=== PATIENT | female | born 1995 | race Caucasian/White ===

== ENCOUNTER 2016-06-20 13:45 | Emergency (ER) | payer OTHER ==
[~2016-06-20] VITALS: Ht 160 cm; Wt 63.0 kg
[2016-06-20 13:52] VITALS: TEMP 36.7; Ht 160 cm; Wt 63.0 kg
[2016-06-20] MEDS ORDERED: PRENTAB26 PO (14:05)
[2016-06-20] MEDS ORDERED: MoRPHine SULFATE 2 MG/ML CARP IV STA (14:20)
[2016-06-20] MEDS ORDERED: ONDANSETRON INJ 2 MG/ML 2 ML VIAL IV STA ×2 (14:20→16:55)
[2016-06-20] MEDS ORDERED: SODIUM CHLORIDE 0.9% 1000ML 1,000 ML IV STA (14:20)
[2016-06-20 14:40] LABS: BASO % 0.3 %; BASO ABS # 0.03 K/uL (0-0.2); COMPLETE YES; HEMATOCRIT 38.2 % (37-47); IG% 0.3 %; LYMPH % 21.3 %; LYMPH ABS # 2.18 K/uL (1.2-3.4); MEAN CELL VOLUME 85.5 fL (80-100); MEAN CORPUSCULAR HEMOGLOBIN 29.3 pg (25-34); MEAN CORPUSCULAR HGB CONC 34.3 g/dl (32-36); MEAN PLATELET VOLUME 10.4 fL (7.4-10.4); MONO % 7.5 %; NEUT % 69.6 %; PLATELET COUNT 284 K/uL (130-400); RED BLOOD COUNT 4.47 M/uL (4.2-5.4); WHITE BLOOD COUNT 10.24 K/uL (4.8-10.8)
[2016-06-20 14:42] LABS: URINE APPEARANCE CLEAR (CLEAR); URINE BILIRUBIN NEG (NEG); URINE COLOR YELLOW; URINE EPITHELIAL CELL AUTO >30 /lpf (0-5); URINE NITRITE NEG (NEG); URINE PH 6.5 (4.5-7.5); URINE SPECIFIC GRAVITY 1.006 (1.000-1.030); UROBILINOGEN NEG (NEG)
[2016-06-20 14:43] LABS: MANUAL MICROSCOPIC REQUIRED? NO; REVIEW REQ? NO
[2016-06-20 15:10] LABS: ALKALINE PHOSPHATASE 50 U/L (45-117); ALT/SGPT 23 U/L (12-78); AMYLASE 67 U/L (25-115); AST/SGOT 21 U/L (15-37); BLOOD UREA NITROGEN 5 mg/dl (7-18); BUN/CREATININE RATIO 7.6 (10-20); CALCIUM 9.3 mg/dl (8.5-10.1); CARBON DIOXIDE 25 mmol/L (21-32); CHLORIDE 106 mmol/L (98-107); GLUCOSE 72 mg/dl (70-99); POTASSIUM 3.6 mmol/L (3.5-5.1); SODIUM 139 mmol/L (136-145)
--- NOTE | 2016-06-20 17:56 | DIAGNOSTIC IMAGING REPORT ---
Right upper quadrant ultrasound GALLBLADDER-ABD LIMITED CLINICAL HISTORY: flank pain radiating around the abdomen to the supraumbilical ar pain TECHNIQUE: Ultrasound COMPARISON STUDY: None FINDINGS: Normal gallbladder. Common bile duct 5 mm. Liver and pancreas are uniform. Right kidney is negative for hydronephrosis. IMPRESSION: Negative study Electronically signed by: Blaise Bell M.D. 06/20/2016 5:55 PM Dictated Date/Time: 06/20/2016 5:54 PM
[2016-06-20] MEDS ORDERED: ONDA4TAB46 PO (18:13)
[2016-06-20 18:20] VITALS: BP 131/80; PULSE 80; O2SAT 98
--- NOTE | 2016-06-20 22:15 | EMERGENCY ROOM VISIT NOTE ---
ED Visit Note First contact with patient: 14:08 Chief Complaint: Left flank pain and superior umbilicus pain. History of Present Illness: Ms. Campbell is a 20 year-old white female who ambulates into the ED complaining of pain in the left flank area. Historically patient reports she is 2 and para 0 and is currently 11 weeks with an EDC of January 08. Patient reports intermittent left flank pain for the last 3-4 days. She describes her pain as a mild cramping and pressure sensation. Her pain was mild over the last few days. She did not identify any aggravating or alleviating factors related to the pain. She did not take any medications for pain. She denies any associated symptoms with her pain. Then approximately 3.5 hours ago her pain started and was severe. She uses the same descriptors for her pain. She rates her discomfort 6/10 at the onset and is currently 2/10. Now she reports the pain is radiating around the left side of the abdomen into the area just superior to the umbilicus. Since the onset of her severe pain it has waxed and waned in intensity. She has not identified any aggravating or alleviating factors related to the pain. She did not take any medications for pain prior to arrival at the hospital. Associated with her pain she reports she has been nauseated but has not vomited and she has had chills but no sriram fever. Patient denies sweats, skin eruptions, skin color changes, upper respiratory tract symptoms, shortness of breath, chest pain, diarrhea, constipation, rectal bleeding, black/tarry stools, urinary symptoms, hematuria, vaginal bleeding, vaginal discharge. Review of Systems: As noted above in history of present illness. All body systems were reviewed and found to be negative as noted above. Past Medical History: Hypertension, migraine headaches. Current Medications: Patient denies. Allergies to Medications: Patient denies. Social History: Patient is currently employed; she lives with her fiance and feels safe in her home environment; she denies tobacco and alcohol use. Physical Examination: Vital Signs: Date Time Temp Pulse Resp B/P Pulse Ox O2 Delivery O2 Flow Rate FiO2 06/20/16 18:20 80 16 131/80 98 06/20/16 17:58 70 16 137/77 96 Room Air 06/20/16 17:09 77 16 124/84 97 Room Air 06/20/16 15:22 72 19 139/75 100 Room Air 06/20/16 14:30 65 06/20/16 13:52 36.7 87 16 163/96 98 Room Air GENERAL: 20-year-old female in mild distress due to pain, nontoxic-appearing, afebrile and hemodynamically stable. NEUROLOGICAL: Awake, alert and oriented to person, place and time. Answering questions appropriately and following commands. Normal gait. Good hand eye coordination. SKIN: Warm, dry and pink. No soft tissue eruptions or trauma noted. HEENT: Atraumatic and normocephalic. PERRL. Sclera white and conjunctiva pink. Oral cavity moist and pink. Pharynx is nonerythematous or edematous. Speech normal. No lymphadenopathy. Trachea midline. No jugular venous distention. BACK: No tenderness over the bony spine. No CVA tenderness. THORAX: Lungs sounds are clear to auscultation and equal bilaterally with symmetrical chest wall. No wheezing, rales or rhonchi. No crepitus, tenderness , subcutaneous air or deformities noted. HEART: Regular rate and rhythm. No gallops, rubs or murmurs are appreciated. ABDOMEN: Flat and soft with mild tenderness in the epigastric and right upper quadrant; no tenderness in the left upper quadrant. Positive bowel sounds in all quadrants. No guarding, rigidity or organomegaly. EXTREMITIES: Moves all extremities well on command and with purpose. All distal neurovascular statuses are intact and equal bilaterally. ED Course: Patient is assessed as noted above. Laboratory Testing: Test 06/20/16 14:05 06/20/16 14:15 06/20/16 15:32 Range/Units Urine Color YELLOW Urine Appearance CLEAR CLEAR Urine pH 6.5 4.5-7.5 Urine Specific [place] 1.006 1.000-1.030 Urine Protein NEG NEG Urine Glucose (UA) NEG NEG Urine Ketones NEG NEG Urine Occult Blood NEG NEG Urine Nitrite NEG NEG Urine Bilirubin NEG NEG Urine Urobilinogen NEG NEG Urine Leukocyte Esterase SMALL NEG Urine WBC (Auto) 5-10 0-5 /hpf Urine RBC (Auto) 0-4 0-4 /hpf Urine Hyaline Casts (Auto) 1-5 0-5 /lpf Urine Epithelial Cells (Auto) >30 0-5 /lpf Urine Bacteria (Auto) NEG NEG White Blood Count 10.24 4.8-10.8 K/uL Red Blood Count 4.47 4.2-5.4 M/uL Hemoglobin 13.1 12.0-16.0 g/dL Hematocrit 38.2 37-47 % Mean Corpuscular Volume 85.5 80-100 fL Mean Corpuscular Hemoglobin 29.3 25-34 pg Mean Corpuscular Hemoglobin Concent 34.3 32-36 g/dl Platelet Count 284 130-400 K/uL Mean Platelet Volume 10.4 7.4-10.4 fL Neutrophils (%) (Auto) 69.6 % Lymphocytes (%) (Auto) 21.3 % Monocytes (%) (Auto) 7.5 % Eosinophils (%) (Auto) 1.0 % Basophils (%) (Auto) 0.3 % Neutrophils # (Auto) 7.13 1.4-6.5 K/uL Lymphocytes # (Auto) 2.18 1.2-3.4 K/uL Monocytes # (Auto) 0.77 0.11-0.59 K/uL Eosinophils # (Auto) 0.10 0-0.5 K/uL Basophils # (Auto) 0.03 0-0.2 K/uL RDW Standard Deviation 40.5 36.4-46.3 fL RDW Coefficient of Variation 13.0 11.5-14.5 % Immature Granulocyte % (Auto) 0.3 % Immature Granulocyte # (Auto) 0.03 0.00-0.02 K/uL Sodium Level 139 136-145 mmol/L Potassium Level 3.6 3.5-5.1 mmol/L Chloride Level 106 98-107 mmol/L Carbon Dioxide Level 25 21-32 mmol/L Anion Gap 8.0 3-11 mmol/L Blood Urea Nitrogen 5 7-18 mg/dl Creatinine 0.60 0.60-1.20 mg/dl Est Creatinine Clear Calc Drug Dose 134.8 ml/min Estimated GFR () > 150.0 Estimated GFR (Non- 132.1 BUN/Creatinine Ratio 7.6 10-20 Random Glucose 72 70-99 mg/dl Calcium Level 9.3 8.5-10.1 mg/dl Total Bilirubin 0.4 0.2-1 mg/dl Direct Bilirubin 0.1 0-0.2 mg/dl Aspartate Amino Transf (AST/SGOT) 21 15-37 U/L Alanine Aminotransferase (ALT/SGPT) 23 12-78 U/L Alkaline Phosphatase 50 45-117 U/L Total Protein 7.7 6.4-8.2 gm/dl Albumin 4.1 3.4-5.0 gm/dl Amylase Level 67 25-115 U/L Lipase 180 73-393 U/L Human Chorionic Gonadotropin, Quant 80825 mIU/mL Chemistry Specimen Hemolysis Gallbladder Ultrasound: Was reviewed by myself and read by the radiologist showing a normal-appearing gallbladder, liver, pancreas and kidney. Common bile duct measuring 5 mm. Patient was hydrated with normal saline and she received a total of 8 mg of Zofran IV; she was offered pain medications and refused. Patient was reassessed multiple times during her stay in the emergency department. Patient's case was reviewed with Dr. Quinones; we agreed on diagnostic approach, treatment, disposition and plan. Patient was educated about tonight's findings and instructed on her treatment plan; she verbalizes understanding and agreement with this plan. Clinical Impression: Acute left-sided thoracic back pain. Superior umbilical abdominal pain. Nausea. Decision-Making: Initially my differential diagnosis I considered during calculus, pyelonephritis, pancreatitis, hepatitis, splenomegaly, constipation, esophagitis, gastritis and other causes. Disposition: Patient discharged home in stable condition accompanied by her boyfriend; prior to departure she was was reassessed and subjectively reported she was feeling better. Plan: Patient was encouraged to use 650 mg of acetaminophen every 6 hours as needed for pain. Patient was prescribed Zofran 4 mg every 6 hours as needed for nausea. Patient was encouraged to contact her OSTOMY NURSE practitioner tomorrow inform them of today's ED visit so they may review labs and decide if she would need an earlier appointment. Patient was encouraged return the ED for worsening/uncontrolled pain, worsening/ uncontrolled nausea or vomiting, fevers, urinary symptoms, vaginal bleeding or any new/concerning symptoms.
== END 2016-06-20 18:22 | disposition home or self-care (01) ==
LOC: C.EDB 13:47 → C.EDA 18:22
DX: O26.891 Other specified pregnancy related conditions, first trimester (principal); R10.33 Periumbilical pain; M54.6 Pain in thoracic spine; R11.0 Nausea; O10.011 Pre-existing essential hypertension complicating pregnancy, first trimester; O99.351 Diseases of the nervous system complicating pregnancy, first trimester; G43.909 Migraine, unspecified, not intractable, without status migrainosus; Z3A.11 11 weeks gestation of pregnancy

== ENCOUNTER → 2016-07-02 | Outpatient (CLI) | payer OTHER ==
[~2016-07-02] MED LIST: ONDA4TAB46 PO; PRENTAB26 PO
[2016-07-04 15:16] LABS: CHLAMYDIA TRACH RNA*** NOT DETECTED (NOT DETECTED); GC (NEIS GONORRHOEAE)RNA** NOT DETECTED (NOT DETECTED)
== END | disposition home or self-care (01) ==
LOC: C.LABSPEC 13:19
PROVIDERS: ATTEND Obstetrics & Gynecology
DX: Z34.01 Encounter for supervision of normal first pregnancy, first trimester (principal)

== ENCOUNTER → 2016-07-02 | Outpatient (CLI) | payer OTHER ==
[2016-07-02 12:30] LABS: BASO % 0.2 %; BASO ABS # 0.02 K/uL (0-0.2); COMPLETE YES; EOS % 1.2 %; HEMATOCRIT 41.7 % (37-47); IG% 0.3 %; LYMPH % 22.2 %; LYMPH ABS # 2.36 K/uL (1.2-3.4); MEAN CELL VOLUME 87.1 fL (80-100); MEAN CORPUSCULAR HEMOGLOBIN 29.2 pg (25-34); MEAN CORPUSCULAR HGB CONC 33.6 g/dl (32-36); MEAN PLATELET VOLUME 10.5 fL (7.4-10.4); MONO % 5.8 %; NEUT % 70.3 %; PLATELET COUNT 288 K/uL (130-400); RED BLOOD COUNT 4.79 M/uL (4.2-5.4); WHITE BLOOD COUNT 10.61 K/uL (4.8-10.8)
== END | disposition home or self-care (01) ==
LOC: C.LAB1850 10:58
PROVIDERS: ATTEND Obstetrics & Gynecology
DX: Z34.01 Encounter for supervision of normal first pregnancy, first trimester (principal)

== ENCOUNTER → 2016-08-09 | Outpatient (CLI) | payer OTHER ==
[2016-08-09 18:14] LABS: GTGD 50 Grams
[2016-08-13 16:05] LABS: AFP CONCENTRATION 56.9 NG/ML; AFP MULTIPLE OF MEDIAN 0.93; AFPTS GESTATIONAL AGE 20.1 WEEKS; AFPTS INSULIN DEP DIABETIC? NO; AFPTS MATERNAL WT 136 LBS; ALPHA-FETOPROTEIN RACE CAUCASIAN=W; EDD DETERMINED BY ULTRASOUND; ESTRIOL MULTIPLE OF MEDIAN 0.76; HISTORY OF NTD NO; INHIBIN A 161 PG/ML; INHIBIN A MOM 0.81; REPEAT SAMPLE? NO; hCG MULTIPLE OF MEDIAN 1.26
== END | disposition home or self-care (01) ==
LOC: C.LAB1850 12:52
PROVIDERS: ATTEND Obstetrics & Gynecology
DX: Z34.02 Encounter for supervision of normal first pregnancy, second trimester (principal)

== ENCOUNTER → 2016-10-01 | Outpatient (CLI) | payer OTHER ==
[2016-10-01 14:13] LABS: URINE APPEARANCE CLOUDY (CLEAR); URINE BILIRUBIN NEG (NEG); URINE COLOR YELLOW; URINE EPITHELIAL CELL AUTO >30 /lpf (0-5); URINE NITRITE NEG (NEG); URINE SPECIFIC GRAVITY 1.013 (1.000-1.030); UROBILINOGEN NEG (NEG)
[2016-10-01 14:18] LABS: MANUAL MICROSCOPIC REQUIRED? NO; REVIEW REQ? NO
== END | disposition home or self-care (01) ==
LOC: C.LABSPEC 12:50
PROVIDERS: ATTEND Obstetrics & Gynecology
DX: Z34.02 Encounter for supervision of normal first pregnancy, second trimester (principal)

== ENCOUNTER → 2016-10-04 | Outpatient (CLI) | payer OTHER ==
[2016-10-04 16:56] LABS: HEMATOCRIT 34.7 % (37-47)
[2016-10-04 20:04] LABS: GTGD 50 Grams
== END | disposition home or self-care (01) ==
LOC: C.LAB1850 14:14
PROVIDERS: ATTEND Obstetrics & Gynecology
DX: Z34.02 Encounter for supervision of normal first pregnancy, second trimester (principal)

== ENCOUNTER 2016-10-16 10:03 | Outpatient (CLI) | payer OTHER ==
[~2016-10-16] VITALS: Ht 160 cm; Wt 69.1 kg
[2016-10-16 11:09] VITALS: Ht 160 cm; Wt 69.1 kg
--- NOTE | 2016-10-16 13:52 | DIAGNOSTIC IMAGING REPORT ---
BIOPHYSICAL PROFILE CLINICAL HISTORY: arrhythmia. COMPARISON STUDY: ultrasound July 02, 2016. TECHNIQUE: Transabdominal biophysical profile was performed. FINDINGS: Single intrauterine gestation is noted with normal heart rate of 127 bpm. Position was transverse. Amniotic fluid index measured 16 cm. tone and movement were normal. No breathing was identified. Trace pericardial effusion is noted. Placenta is located along the right lateral aspect of the uterus. No placental abnormality is identified. IMPRESSION: 1. Single intrauterine gestation with normal heart rate of 127 bpm. 2. Biophysical profile of 6 out of 8. Normal tone, movement and amniotic fluid index with no breathing identified. 3. Trace pericardial effusion. Electronically signed by: Philip Guzman M.D. 10/16/2016 1:50 PM Dictated Date/Time: 10/16/2016 1:45 PM
== END 2016-10-16 16:49 | disposition home or self-care (01) ==
LOC: C.OPB 10:03 → C.LD 10:04 → C.OPB 16:49
PROVIDERS: ATTEND Obstetrics & Gynecology
DX: O26.899 Other specified pregnancy related conditions, unspecified trimester (principal); Z3A.00 Weeks of gestation of pregnancy not specified

== ENCOUNTER 2016-10-18 13:10 | Outpatient (CLI) | payer OTHER ==
[~2016-10-18 13:10] MED LIST changes: -ONDA4TAB46 PO
== END 2016-10-18 14:30 | disposition home or self-care (01) ==
LOC: C.OPB 13:10 → C.LD 13:10 → C.OPB 14:30
PROVIDERS: ATTEND Obstetrics & Gynecology
DX: O36.8930 Maternal care for other specified fetal problems, third trimester, not applicable or unspecified (principal); Z3A.00 Weeks of gestation of pregnancy not specified

== ENCOUNTER → 2016-10-25 | Outpatient (CLI) | payer OTHER | END | disposition home or self-care (01) | LOC: C.LAB1850 09:37 | PROVIDERS: ATTEND Obstetrics & Gynecology | DX: O28.1 Abnormal biochemical finding on antenatal screening of mother (principal) ==

== ENCOUNTER 2016-11-02 22:34 | Outpatient (CLI) | payer OTHER ==
[~2016-11-02] VITALS: Ht 160 cm; Wt 70.5 kg
[2016-11-02] MEDS ORDERED: ACETAMINOPHEN 500 MG TAB PO ONE (22:37)
[2016-11-02] MEDS ORDERED: LACTATED RINGER'S 1000ML 500 ML IV ONE (22:37)
[2016-11-02] MEDS ORDERED: ACETAMINOPHEN 500 MG TAB PO STA (22:44)
[2016-11-02] MEDS ORDERED: BETAMETH SOD PHOS/ACETATE IA 6 MG/ML IM STA (23:09)
[2016-11-02] MEDS: LACTATED RINGER'S 1000ML 1,000 ML IV SCH (23:32)
[2016-11-02 23:36] LABS: BASO % 0.1 %; BASO ABS # 0.02 K/uL (0-0.2); COMPLETE YES; EOS % 1.2 %; HEMATOCRIT 33.2 % (37-47); IG% 1.3 %; LYMPH % 19.1 %; MEAN CELL VOLUME 89.7 fL (80-100); MEAN CORPUSCULAR HEMOGLOBIN 29.7 pg (25-34); MEAN CORPUSCULAR HGB CONC 33.1 g/dl (32-36); MEAN PLATELET VOLUME 10.5 fL (7.4-10.4); MONO % 6.7 %; NEUT % 71.6 %; PLATELET COUNT 233 K/uL (130-400); WHITE BLOOD COUNT 14.64 K/uL (4.8-10.8)
[2016-11-03 00:27] VITALS: Ht 160 cm; Wt 70.5 kg
[2016-11-03] MEDS: LACTATED RINGER'S 1000ML 1,000 ML IV SCH (01:10)
--- NOTE | 2016-11-03 07:11 | Discharge Instructions ---
Discharge Instructions Date of Service Nov 03, 2016. Admission Reason for Admission: Check Movement Discharge Discharge Diagnosis / Problem: s/p abdominal trauma Discharge Goals Goal(s): Continuing OB care Activity Recommendations Activity Limitations: per Instructions/Follow-up section . Instructions / Follow-Up Instructions / Follow-Up ACTIVITY RECOMMENDATIONS: See Labor Sheet. SPECIAL CARE INSTRUCTIONS: Call Doctor if: * Regular contractions every 5 minutes or greater than 10 contractions in one hour. * Bleeding * Water breaks or is leaking * Decreased movement * Fever >100.4 degrees F * Pain not relieved by routine measures or pain medication ordered. FOLLOW UP VISIT: COME TO [facility] AND DELIVERY [facility], 11/03/16 TO RECEIVE YOUR SECOND DOSE OF STEROIDS. As scheduled on this week. Current Hospital Diet Patient's current hospital diet: Discharge Diet Recommended Diet: Regular OB Diet Pending Studies Studies pending at discharge: no Medical Emergencies . Who to Call and When: Medical Emergencies: If at any time you feel your situation is an emergency, please call 911 immediately. . Non-Emergent Contact Non-Emergency issues call your: Primary Care Provider, Senior Site Manager . . "Provider Documentation" section prepared by Alysha Bunch. . VTE Core Measure Inpt VTE Proph given/why not?: Treatment not indicated
== END 2016-11-03 07:36 | disposition home or self-care (01) ==
LOC: C.OPB 22:34 → C.LD 22:35 → C.OPB 11-03 07:36
PROVIDERS: ATTEND Obstetrics & Gynecology
DX: O26.893 Other specified pregnancy related conditions, third trimester (principal); S30.1XXA Contusion of abdominal wall, initial encounter; W01.0XXA Fall on same level from slipping, tripping and stumbling without subsequent striking against object, initial encounter; Y93.K1 Activity, walking an animal; Z3A.32 32 weeks gestation of pregnancy

== ENCOUNTER 2016-11-03 23:52 | Outpatient (CLI) | payer OTHER ==
[~2016-11-03] VITALS: Ht 160 cm; Wt 70.5 kg
[2016-11-04 00:18] VITALS: Ht 160 cm; Wt 70.5 kg
[2016-11-04] MEDS ORDERED: BETAMETH SOD PHOS/ACETATE IA 6 MG/ML ONE (00:23)
[2016-11-04] MEDS ORDERED: BETAMETH SOD PHOS/ACETATE IA 6 MG/ML IM STA (00:27)
--- NOTE | 2016-11-07 06:59 | EDITING REQUIRED CODING QUERY ---
DIAGNOSIS NEEDED To promote full compliance with coding requirements relating to patient care, physician participation is requested in all cases of mat roller uncertainty. Please assist us with the question(s) below: Coding Question: The patient received care in labor and delivery on 11/04/16 as noted within the record. Please document the diagnosis that is being addressed by the medication/treatment. Provider Response: DIAGNosis at 32 weeks, contractions WEEKS OF GESTATION: 32 Thank you for your assistance, Mary Buckner - Portuguese Tutor
== END 2016-11-04 00:42 | disposition home or self-care (01) ==
LOC: C.OPB 23:52 → C.LD 23:54 → C.OPB 11-04 00:42
PROVIDERS: ATTEND Obstetrics & Gynecology
DX: O62.9 Abnormality of forces of labor, unspecified (principal); Z3A.32 32 weeks gestation of pregnancy

== ENCOUNTER → 2016-12-06 | Outpatient (CLI) | payer OTHER | END | disposition home or self-care (01) | LOC: C.LABSPEC 15:30 | PROVIDERS: ATTEND Obstetrics & Gynecology | DX: Z34.03 Encounter for supervision of normal first pregnancy, third trimester (principal) ==

== ENCOUNTER 2018-10-29 14:09 | Inpatient (IN) ==
[2018-10-29] MEDS ORDERED: ACETAMINOPHEN 500 MG TAB PO STA (15:01)
[2018-10-29 15:06] LABS: Basophils # (auto) 0.02 K/uL (0-0.2); Basophils % (auto) 0.2 %; Eosinophils # (auto) 0.08 K/uL (0-0.5); Eosinophils % (auto) 0.7 %; Hematocrit (blood only) 33.4 % (37-47); Immature Granulocytes # (auto) 0.04 K/uL (0.00-0.02); Immature Granulocytes % (auto) 0.4 %; Lymphocytes # (auto) 1.87 K/uL (1.2-3.4); Lymphocytes % (auto) 16.9 %; Mean Corpuscular Hemoglobin 27.6 pg (25-34); Mean Corpuscular Volume 83.7 fL (80-100); Mean Platelet Volume 11.9 fL (7.4-10.4); Monocytes # (auto) 0.74 K/uL (0.11-0.59); Monocytes % (auto) 6.7 %; Neutrophils # (auto) 8.33 K/uL (1.4-6.5); Neutrophils % (auto) 75.1 %; Platelet Count 224 K/uL (130-400); RDW Coefficient of Variation 13.1 % (11.5-14.5); RDW Standard Deviation 39.6 fL (36.4-46.3); Red Blood Count 3.99 M/uL (4.2-5.4); White Blood Count 11.08 K/uL (4.8-10.8)
[2018-10-29 15:08] LABS: Mean Corpuscular Hgb Conc 32.9 g/dL (32-36)
[2018-10-29 15:26] LABS: Alanine Aminotransferase 17 U/L (12-78); Albumin Level 2.4 gm/dl (3.4-5.0); Aspartate Aminotransferase 20 U/L (15-37); BUN Creatinine Ratio 13.9 (10-20); Blood Urea Nitrogen 8 mg/dl (7-18); Calcium 8.9 mg/dl (8.5-10.1); Carbon Dioxide 21 mmol/L (21-32); Chloride 108 mmol/L (98-107); Creatinine Clr Calc Pharmacy 156.3 ml/min; Est GFR (African American) > 150.0; Est GFR (Non-African American) 133.3; Glucose 70 mg/dl (70-99); Potassium 3.8 mmol/L (3.5-5.1); Sodium 137 mmol/L (136-145)
[2018-10-29 15:29] LABS: Albumin Globulin Ratio 0.6 (0.9-2); Alkaline Phosphatase 158 U/L (45-117); Bilirubin,Total 0.2 mg/dl (0.2-1); Total Protein 6.4 gm/dl (6.4-8.2)
[2018-10-29 15:44] LABS: Creatinine Urine Random 30.3 mg/dl; Protein Creatinine Ratio Urine 0.3 (0-0.2); Total Protein Urine Random 7.7 mg/dl (0-11.9)
[2018-10-29] MEDS ORDERED: OXYTOCIN 30 UNITS/500 ML BAG IV PRN ×2 (15:56→17:57)
[2018-10-29] MEDS ORDERED: DINOPROSTONE 10 MG INSERT PV ONE (15:56)
[2018-10-29] MEDS: LABETALOL HCL 200 MG TAB PO SCH ×3 (16:23→21:38)
--- NOTE | 2018-10-29 18:00 | Labor Progress Brief Note ---
Date of Service October 29, 2018 Pt seen and evaluated Ruled in for preeclampsia- Mild offered pt induction of labor, she has agreed FHR; CAT1 Ctx 2-4mins VE /50/-1 will start pitocin Results & Data Vital Signs (Past 12 Hours) Vital Signs Temp Pulse Resp BP 10/29/18 15:47 68 152/96 H 10/29/18 15:32 75 160/81 H 10/29/18 15:17 83 145/89 H 10/29/18 15:02 87 134/93 10/29/18 14:45 79 130/83 10/29/18 14:29 78 147/94 H 10/29/18 14:20 36.6 C 78 18 147/94 H 10/29/18 14:15 75 129/69
--- NOTE | 2018-10-29 18:13 | History and Physical Report ---
DATE OF ADMISSION: 10/29/2018 NOTICE TO RECEIVING CONSTITUTION PARTY/AGENCY This information is strictly Confidential and protected under [place] law. [place] law prohibits you from making any further disclosure of this information unless further disclosure is expressly permitted by the written consent of the person to whom it pertains or is authorized by law. A general authorization for the release of medical or other information is not sufficient for this purpose. Hospital accepts no responsibility if the information is made available to any other person, INCLUDING THE PATIENT. HISTORY OF PRESENT ILLNESS: The patient is a 22-year-old G2, P1, due date 11/01/2018 making her 39 weeks and 4 days today. She has had an unremarkable course until this morning when she experienced some headache. She was seen in the office for routine care during which blood pressures done in the office were elevated in the 170-200. She had 1+ proteinuria. She was sent to labor and delivery. On arrival at labor and delivery, she had no shortness of breath, no chills, no fever. Remarkably, her initial blood pressures in labor and delivery were not elevated. Serial blood pressures; however, have documented two elevated blood pressures. CBC, complete chemistry are ordered all within normal. Platelets are normal. LFTs are normal. Urine protein creatinine clearance at 0.3. Diagnosis at this time therefore is mild preeclampsia. The patient besides mild headache declines any shortness of breath, any right upper quadrant pain or visual changes. COURSE: As stated above, has been unremarkable until this morning. LABS: Blood type A positive, antibody negative, rubella immune, GBS negative. PAST MEDICAL HISTORY: 1. Depression. 2. Anxiety. 3. Migraines. PAST SURGICAL HISTORY: The patient has had dental surgery in the past. SOCIAL HISTORY: The patient denies tobacco, drug, alcohol use. FAMILY HISTORY: Noncontributory. PHYSICAL EXAMINATION: GENERAL: Well-developed, well-nourished white female in no acute distress. HEART: S1, S2, regular rhythm and rate. ABDOMEN: Gravid. Bedside sonogram shows cephalic presentation. PELVIC: The patient is 3 cm, 50% effaced, and -1. EXTREMITIES: No cyanosis, clubbing or edema. ASSESSMENT AND PLAN: A 22-year-old G2, P1 at 39+ weeks, mild preeclampsia. The patient is admitted. I have discussed induction of labor with patient. She has agreed. We will therefore proceed with induction for mild preeclampsia. VALENCIA
[2018-10-29] MEDS: LACTATED RINGER'S 1,000 ML IV PRN (18:23)
[2018-10-29] MEDS ORDERED: OXYCODONE/ACETAMINOPHEN 5mg/325mg TAB PO STA ×2 (21:50→22:03)
[2018-10-30] MEDS: LACTATED RINGER'S 1,000 ML IV PRN ×2 (01:57→06:13)
--- NOTE | 2018-10-30 02:15 | Labor Progress Brief Note ---
Date of Service October 30, 2018 Induction for preeclampsia On Labetelol Improved headache FHR: CAT1 Ctx 2-5mins Pit; 16MU VE; 4/80/0 station Discussed AROM- Her boyfriend is home till 6AM when he would have a molder closed molds Results & Data Vital Signs (Past 12 Hours) Vital Signs Temp Pulse Resp BP 10/29/18 15:47 68 152/96 H 10/29/18 15:32 75 160/81 H 10/29/18 15:17 83 145/89 H 10/29/18 15:02 87 134/93 10/29/18 14:45 79 130/83 10/29/18 14:29 78 147/94 H 10/29/18 14:20 36.6 C 78 18 147/94 H 10/29/18 14:15 75 129/69
[2018-10-30] MEDS ORDERED: ePHEDrine sulfate 50 MG/ML AMP ONE (03:38)
[2018-10-30] MEDS ORDERED: BUPIVACAINE 0.25% 30 ML VIAL ONE (03:38)
[2018-10-30] MEDS ORDERED: fentaNYL citrate 100 MCG/2 ML VIAL ONE (03:39)
[2018-10-30] MEDS ORDERED: fentaNYL 2MCG/ML ROPIV 1.25MG/ML 100 ML BAG EPI ONE (03:39)
[2018-10-30] MEDS: LABETALOL HCL 200 MG TAB PO SCH ×2 (04:07→16:47)
[2018-10-30] MEDS ORDERED: fentaNYL 2MCG/ML ROPIV 1.25MG/ML 100 ML BAG EPI PRN (04:09)
[2018-10-30] MEDS ORDERED: ePHEDrine sulfate 50 MG/ML AMP IV PRN (04:09)
[2018-10-30] MEDS ORDERED: ONDANSETRON INJ 2 MG/ML 2 ML VIAL IV PRN (04:09)
[2018-10-30] MEDS ORDERED: NALOXONE HCL 1 MG in SODIUM CHLORIDE 0.9% 1000ML 1,000 ML IV PRN (04:09)
[2018-10-30] MEDS ORDERED: DiphenhydrAMINE HCL 50 MG/ML VIAL IV PRN (04:09)
[2018-10-30] MEDS ORDERED: NALOXONE HCL 0.4 MG/1 ML VIAL/CARP IV PRN (04:09)
[2018-10-30] MEDS ORDERED: NALBUPHINE HCL INJ 10 MG/ML AMP IV PRN (04:09)
--- NOTE | 2018-10-30 04:11 | Anesthesiology Consultation ---
Date of Service October 30, 2018 Assessment & Plan Chart Review Chart Review: Patient NOT seen in Pre Admission Testing and Acceptable Risk for Labor Epidural Consults Requested none ASA ASA2 Proposed Anesthesia Anesthesia Type: Labor Epidural and CSE Risk / Benefits Reviewed With: PT / POA / Parent / Guardian, Accepts Plan and Informed Consent Obtained History Height/Weight Height: 5 ft 3 in Weight: 77.111 kg Allergies Allergy/AdvReac Type Severity Reaction Status Date / Time No Known Allergies Allergy Unverified 10/17/18 17:18 Medications Home Medications Medication Instructions Recorded Confirmed Last Taken PNV cmb#95-ferrous fumarate-FA 1 tab PO DAILY 06/27/18 10/29/18 1 Day Ago [] ~10/28/18 Active Medications Generic Name Dose Route Start Last Admin Trade Name Freq PRN Reason Stop Dose Admin Lactated Ringer's 1,000 mls @ 125 mls/hr 10/29/18 15:56 10/30/18 04:04 Lr IV 10/31/18 15:55 125 mls/hr .Q8H PRN Infusion L&D Protocol Protocol Oxytocin 30 units in 500 mls @ 9 mls/hr 10/29/18 17:57 10/30/18 04:13 Pitocin IV 10/31/18 17:56 0 units/hr .Q24H PRN 0 mls/hr Labor Induction/Augmentation Titration Protocol 0.54 UNITS/HR Labetalol HCl 200 mg 10/30/18 04:30 10/30/18 04:07 Normodyne PO 11/29/18 04:29 200 mg BID@0430,1630 SHERI Administration NPO Date Last Intake of Fluids: 10/30/18 Time Last Intake of Fluids: 03:00 Date Last Intake of Solids: 10/29/18 Past Medical History Medical History Gestational hypertension w/o significant proteinuria in 3rd trimester Anxiety Depression [place] teeth extracted Exercise / Class Metabolic Activity II 4-5 Yardwork/Stairs/Walk up hill Past Surgical History Surgical History No significant past surgical history Past Anesthesia History No Hx of Anesthesia Complications and No Family Hx of Anesthesia Complications History of PONV No Hx of PONV and No Hx of Motion Sickness Social History Smoking Status: Never smoker Hx Alcohol Use: No Hx Substance Use: No substance use type: does not use Review of Systems no chest pain or sob Physical Exam Vital Signs Last Vital Signs Temp 36.6 C 10/29/18 14:20 Pulse 68 10/29/18 15:47 Resp 18 10/29/18 14:20 BP 152/96 H 10/29/18 15:47 ENMT Mouth: no TMJ abnormality Thyromental Distance: > or= 3.5 Finger Breadths Mallampati Class: II Neck normal visual inspection Respiratory normal respiratory effort Auscultation: lungs clear to auscultation bilaterally Cardiovascular Rate/Rhythm: regular rate and regular rhythm Musculoskeletal Spine: normal cervical ROM Neurologic moves all extremities Psychiatric Orientation: alert and oriented x 3 Testing Laboratory Results 10/29/18 14:53 10/29/18 14:53
--- NOTE | 2018-10-30 07:14 | Labor Progress Brief Note ---
Date of Service October 30, 2018 Induction for Preeclampsia Pt doing well FHR; CAT1 Ctx; 1-4 Pit; 6MU AROM- Clear scalp electrode placed
--- NOTE | 2018-10-30 09:13 | Delivery Summary ---
Vaginal Delivery Summary Date of Service October 30, 2018 Vaginal Delivery Summary Delivery note live female over intact perineum OMID with nuchal cord x1 and left hand presenting that were reduced at delivery. Delayed cord clamping followed by cord blood and spontaneous delivery of intact placenta. No tears. EBL 200 ml. Final sponge and instrument count are correct. Mom and baby stable.
[2018-10-30] MEDS ORDERED: OXYTOCIN 30 UNITS/500 ML BAG IV PRN (09:17)
[2018-10-30] MEDS ORDERED: DIPHTHERIA/TETANUS/PERTUSSIS 0.5 ML SYR/VIAL IM ONE (09:17)
[2018-10-30] MEDS ORDERED: ACETAMINOPHEN 325 MG TAB PO PRN (09:17)
[2018-10-30] MEDS ORDERED: MEASLES, MUMPS & RUBELLA VIRUS VIAL SQ ONE (09:17)
[2018-10-30] MEDS ORDERED: SUPERCREAM 0.870% 15 GM JAR EXT PRN (09:17)
[2018-10-30] MEDS ORDERED: BENZOCAINE 20% AER SPR 82.5 GM CAN EXT PRN (09:17)
[2018-10-30] MEDS ORDERED: HYDROCORTISONE ACETATE 25 MG SUPP PR PRN (09:17)
[2018-10-30] MEDS ORDERED: BISACODYL 10 MG SUPP PR PRN (09:17)
--- NOTE | 2018-10-30 09:46 | Anesthesia Procedure Note ---
Date of Service October 30, 2018 Anesthesia Post Epidural Note Vital Signs Vital Signs: Temp Pulse Resp BP Pulse Ox 37.2 C 83 16 145/84 H 97 10/30/18 09:15 10/30/18 09:43 10/30/18 09:30 10/30/18 09:43 10/30/18 09:07 Notes Mental Status: alert / awake / arousable Nausea / Vomiting: adequately controlled Pain: adequately controlled Airway Patency, RR, SpO2: stable & adequate BP & HR: stable & adequate Hydration State: stable & adequate Neuraxial Anesthesia: was administered and sensory block is resolving Anesthetic Complications: no major complications apparent and Pt Satisfied with anesthetic care Epidural: Removed without complications and With tip intact
[2018-10-30] MEDS: IBUPROFEN 600 MG TAB PO PRN (16:50)
[2018-10-30] MEDS: DOCUSATE SODIUM 100 MG CAP PO SCH (20:06)
[2018-10-31] MEDS: LABETALOL HCL 200 MG TAB PO SCH ×2 (03:32→16:12)
[2018-10-31 06:19] LABS: Hemoglobin 10.1 g/dL (12.0-16.0); Mean Corpuscular Hemoglobin 27.3 pg (25-34); Mean Corpuscular Hgb Conc 32.6 g/dL (32-36); Mean Corpuscular Volume 83.8 fL (80-100); Mean Platelet Volume 11.1 fL (7.4-10.4); Platelet Count 191 K/uL (130-400); RDW Coefficient of Variation 13.3 % (11.5-14.5); RDW Standard Deviation 40.3 fL (36.4-46.3); White Blood Count 12.24 K/uL (4.8-10.8)
[2018-10-31] MEDS: DOCUSATE SODIUM 100 MG CAP PO SCH (07:46)
[2018-10-31] MEDS ORDERED: FERROUS SULFATE 325 MG TAB PO SCH (08:00)
[2018-10-31] MEDS ORDERED: PRENATAL VITAMIN 1 TAB PO SCH (08:00)
[2018-10-31] MEDS ORDERED: NON-FORMULARY MEDICATION (Pnv Cmb#95-Ferrous Fumarate-Fa [Prenatal] 1 TAB) PO SCH (09:00)
--- NOTE | 2018-10-31 09:54 | Labor Progress Brief Note ---
Date of Service October 31, 2018 PPD #2 Pt doing well Improved headache since delivery Pt on labetalol 200mg BID will disc this PM Subjective Review of Systems All systems reviewed & are unremarkable except as noted in HPI & below Physical Exam Constitutional: WD/WN, vitals as above well developed and well nourished Eyes: PERRL, conjunctivae normal, anicteric sclerae Neck: trachea midline, no thyromegaly Respiratory: normal respiratory effort, lungs clear to auscultation Auscultation: no crackles, no rales and no wheezes Cardiovascular: RRR, no murmur, no edema Gastrointestinal (Abdomen): normal bowel sounds, soft, nontender, no hepatosplenomegaly Uterus is below umbilicus Musculoskeletal: no cyanosis or clubbing, extremities motor strength 5/5 Skin: no rashes, warm and dry Neurologic: patellar DTR's 2+ bilat, sensation intact Psychiatric: A+Ox3, euthymic affect Genitourinary: normal external appearance Results & Data Vital Signs (Past 12 Hours) Vital Signs Temp Pulse Resp BP Pulse Ox 10/31/18 08:00 36.4 C L 61 20 133/79 10/31/18 04:33 126/73 10/31/18 03:34 36.4 C L 59 L 18 154/93 H 100 10/30/18 23:35 36.7 C 66 16 137/83 97
[2018-10-31 10:35] LABS: Albumin Level 2.3 gm/dl (3.4-5.0); BUN Creatinine Ratio 10.8 (10-20); Calcium 8.8 mg/dl (8.5-10.1); Creatinine Clr Calc Pharmacy 136.7 ml/min; Est GFR (African American) 147.8; Est GFR (Non-African American) 127.6; Potassium 3.8 mmol/L (3.5-5.1)
[2018-10-31] MEDS: IBUPROFEN 600 MG TAB PO PRN (10:35)
[2018-10-31 10:38] LABS: Albumin Globulin Ratio 0.6 (0.9-2); Bilirubin,Total 0.4 mg/dl (0.2-1); Globulin 4.1 gm/dl (2.5-4.0); Total Protein 6.4 gm/dl (6.4-8.2)
--- NOTE | 2018-10-31 16:10 | Progress Note ---
Date of Service October 31, 2018 Subjective Pt has elevated Bp's tells me she has pregestational HTN will d/c home on labetalol PIH labs - unremarkable will see her PVP for F/u Results & Data Vital Signs (Past 12 Hours) Vital Signs Temp Pulse Resp BP 10/31/18 08:00 36.4 C L 61 20 133/79 10/31/18 04:33 126/73
[2018-10-31] MEDS ORDERED: BISACODYL 5 MG TABEC PO SCH (20:00)
== END 2018-10-31 18:14 | disposition home or self-care (01) | DRG 807 ==
LOC: OPB 14:09 → 4S1 14:10 → 4S2 10-30 12:30